=== PATIENT | male | born 1945 | race Caucasian/White ===

== ENCOUNTER 2019-09-14 16:40 | Inpatient (IN) | payer OTHER ==
[~2019-09-14] VITALS: Ht 182.9 cm; Wt 72.6 kg
[2019-10-05] MEDS ORDERED: SYNTHROID75 MCG PO (12:25)
[2019-10-05] MEDS ORDERED: VITAMIN B12-FO1 EACH PO (12:28)
== END 2019-10-12 11:23 | disposition home or self-care (01) | DRG 330 ==
LOC: O/R 10-10 05:30 → SURG 10-10 05:30
PROVIDERS: ADMIT Colon & Rectal Surgery
PROC: 07TB4ZZ Resection of Mesenteric Lymphatic, Percutaneous Endoscopic Approach (ICD-10-PCS; 2019-10-10)
PROC: 0DBU4ZZ Excision of Omentum, Percutaneous Endoscopic Approach (ICD-10-PCS; 2019-10-10)
PROC: 0DJD8ZZ Inspection of Lower Intestinal Tract, Via Natural or Artificial Opening Endoscopic (ICD-10-PCS; 2019-10-10)
PROC: 0DTN4ZZ Resection of Sigmoid Colon, Percutaneous Endoscopic Approach (ICD-10-PCS; principal; 2019-10-10 07:00)
DX: C19 Malignant neoplasm of rectosigmoid junction (principal); K92.1 Melena; K63.89 Other specified diseases of intestine; R59.0 Localized enlarged lymph nodes; K66.8 Other specified disorders of peritoneum

== ENCOUNTER 2019-10-09 11:12 | Day surgery (SDC) | payer OTHER ==
[~2019-10-09 11:12] MED LIST: SYNTHROID75 MCG PO; VITAMIN B12-FO1 EACH PO
== END 2019-10-09 14:45 | disposition home or self-care (01) ==
LOC: AMB-ENDOS 11:12
DX: C19 Malignant neoplasm of rectosigmoid junction (principal); K64.1 Second degree hemorrhoids

== ENCOUNTER 2019-11-03 08:56 | Emergency (ER) | payer OTHER ==
[~2019-11-03] VITALS: Ht 182.9 cm; Wt 72.6 kg
== END 2019-11-03 15:00 | disposition home or self-care (01) ==
LOC: ER 08:56
DX: I95.89 Other hypotension (principal)

== ENCOUNTER 2020-11-15 10:42 | Day surgery (SDC) | payer OTHER | END 2020-11-15 15:10 | disposition home or self-care (01) | LOC: AMB-ENDOS 10:42 | PROVIDERS: ATTEND Colon & Rectal Surgery | DX: K62.89 Other specified diseases of anus and rectum (principal); K64.1 Second degree hemorrhoids; Z20.828 Contact with and (suspected) exposure to other viral communicable diseases ==